=== PATIENT | female | born 1995 | race African-American/Black ===

== ENCOUNTER 2017-09-19 11:38 | Outpatient (CLI) | payer OTHER ==
[~2017-09-19] VITALS: Ht 165.1 cm; Wt 72.0 kg
[2017-09-19] MEDS ORDERED: PRENATAL FORMU1 EAC3 PO (12:12)
[2017-09-19 12:13] VITALS: BP 120/67; PULSE 83; TEMP 98
[2017-09-19 14:27] VITALS: BP 117/62; PULSE 81; TEMP 97.7
== END 2017-09-19 15:07 | disposition home or self-care (01) ==
LOC: EUO 11:38
DX: R51 Headache (principal); R42 Dizziness and giddiness
CPT/HCPCS: J7120

== ENCOUNTER → 2019-11-02 | Outpatient (CLI) | payer OTHER ==
[~2019-11-02] MED LIST: IBU800 M1 PO; NATURAL IRON65 MG; PERCOCET 325 MG1 TA2 PO; PRENATAL FORMU1 EAC3 PO
== END ==
LOC: ZCOL.LAB 09:00
DX: Z20.828 Contact with and (suspected) exposure to other viral communicable diseases (principal)

== ENCOUNTER 2019-11-07 07:24 | Inpatient (IN) | payer OTHER ==
[2019-11-07] VITALS (19 sets, daily range): BP systolic 110–141; BP diastolic 57–95; PULSE 76–112; TEMP 97.9–98.5
[~2019-11-07] VITALS: Ht 162.6 cm; Wt 97.3 kg
--- NOTE | 2019-11-07 07:25 | NUR ---
PATIENT TO 213 FOR SCEDULED PRIMARY SECTION. PATIENT DRESSED IN GOWN, ON EFM, CONSENTS SIGEND, ASSESMENT COMPLETE, IV STARTED. PATIENT HERE WITH , GERMÁN. PATIENT DENIES LEAKING OF FLUID, CONTRACTIONS, OR BLEEDING. PATIENT DENIES DRUG USE. PATIENTS RECORD INDICATED POSITIVE FOR MARIJUANA USE IN AUGUST, NEGATIVE IN OCTOBER.
[2019-11-07 08:02] LABS: BASO # 0.1 (0.0-0.2); BASO % 0.6 % (0.0-2.0); EOS # 0.1 (0.0-0.7); EOS % 1.1 % (0-4.0); GRAN # 6.5 (1.4-6.5); GRAN % 63.4 % (42.2-75.2); HEMOGLOBIN 10.7 g/dl (12.5-16.0); LYMPH # 2.8 (1.2-3.4); LYMPH % 27.3 % (20.0-51.0); MEAN CELL VOLUME 77 fl (80.0-100.0); MEAN CORPUSCULAR HEMOGLOBIN 24 pg (27.0-31.0); MEAN CORPUSCULAR HGB CONC 31 g/dl (33.0-37.0); MEAN PLATELET VOLUME 10.3 fl (7.4-10.4); MONO # 0.7 (0.1-0.6); PLATELET COUNT 341 K/mm3 (130-400); RED BLOOD COUNT 4.45 M/mm3 (4.10-5.30)
[2019-11-07 08:26] LABS: TRICYCLIC ANTIDEPRESS URINE NEGATIVE
[2019-11-07 08:36] LABS: HEMATOCRIT 34.4 % (37.0-47.0)
--- NOTE | 2019-11-07 15:20 | NUR ---
PT REPORTS FEELING MUCH BETTER. SAYS THE ICE PACK HELPED A LOT. NOW RATING HER PAIN A 3/10
--- NOTE | 2019-11-07 17:30 | NUR ---
PT AMBULATES TO BATHROOM WITHOUT DIFFICULTY. MILLER CATHETER REMOVED. PERICARE PERFORMED. NEW PAD, UNDERWEAR, AND GOWN IN PLACE. ABDOMINAL BINDER PLACED ALSO AND PT REPORTS SHE REALLY LIKES IT. STATES SHE IS FEELING REALLY GOOD RIGHT NOW.
[2019-11-08 00:15] VITALS: BP 134/91; PULSE 106; TEMP 98.1
[2019-11-08 04:15] VITALS: BP 129/74; PULSE 99; TEMP 97.6
[2019-11-08 08:26] VITALS: BP 142/78; PULSE 91; TEMP 98.1
[2019-11-08] MEDS ORDERED: IBU800 M1 PO (09:31)
[2019-11-08] MEDS ORDERED: PERCOCET 325 MG1 TA2 PO (09:31)
--- NOTE | 2019-11-08 09:54 | NUR ---
Initial visit; Parents thanked Paint Specialist for offering congratulations and God's blessings for the of their son. Paint Specialist thanked family for choosing [facility].
--- NOTE | 2019-11-08 13:16 | NUR ---
Conveyor Operator responded to consult for late care and positive UDS for marijuana during . Patient tested positive for marijuana on 08/24/19 but then negative on 10/12/19. Patient also tested negative upon admission. Patient did not start care until 28 weeks because she did not realize she was . AVRIL met with patient and patient's , Randy (ph#[phone]) to assess for needs. Patient and Randy live in [place] with their other child who is 19 months old. Patient states their good friend, Ying is watching her right now. Patient reports that her family lives in [place] and her mother Adina will be in later today to provide additional support. Patient states she had [place] set up for her other child and will get in contact with [facility] to make an appointment for her new baby. Patient reports she has everything she needs and has no concerns about returning home at discharge. 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 SW addressed positive UDS during . Patient states she did not know she was until 28 weeks and once she found out she was she stopped using. Patient states her other child sees Dr. [facility]ke[facility] at [facility] and that her new will also see Dr. Mckeon. AVRIL spoke with RN about above information and RN reported no additional concerns. SW made report to [facility] (intake#[id number]) due to positive UDS during . No additional needs at this time.
[2019-11-08 16:06] VITALS: BP 122/76; PULSE 76; TEMP 98.1
[2019-11-08 20:35] VITALS: BP 136/83; PULSE 98; TEMP 98.3
[2019-11-09 07:10] VITALS: BP 134/74; PULSE 87; TEMP 97.3
--- NOTE | 2019-11-09 12:00 | NUR ---
1145 DISCHARGE INSTRUCTIONS REVIEWED WITH PATIENT. PATIENT VERBALIZED UNDERSTANDING. PATIENT GOING TO GATHER ALL PERSONAL BELONGINGS AND NOTIFY THIS RN WHEN READY TO LEAVE.
--- NOTE | 2019-11-09 13:02 | NUR ---
1210 ALL PERSONAL BELONGINGS GATHERED FROM PATIENT ROOM. PATIENT LEFT AMBULATORY AND IN NO APPARENT DISTRESS. PATIENT ACCOMPANIED BY SPOUSE AND THIS RN.
== END 2019-11-09 12:10 | disposition home or self-care (01) | DRG 788 ==
LOC: OB 07:24
PROVIDERS: ADMIT Student in an Organized Health Care Education/Training Program
PROC: 10D00Z1 Extraction of Products of Conception, Low, Open Approach (ICD-10-PCS; principal; 2019-11-07)
DX: O34.211 Maternal care for low transverse scar from previous cesarean delivery (principal); Z37.0 Single live birth; O99.52 Diseases of the respiratory system complicating childbirth; J45.909 Unspecified asthma, uncomplicated; O99.344 Other mental disorders complicating childbirth; F41.9 Anxiety disorder, unspecified; F32.9 Major depressive disorder, single episode, unspecified; Z3A.39 39 weeks gestation of pregnancy
CPT/HCPCS: J0690; J1885; J2370; J2405; J2590; J7120